=== PATIENT | female | born 1960 | race Caucasian/White ===

== ENCOUNTER 2022-07-23 12:41 | Outpatient (REF) | payer BC, SELFPAY ==
--- NOTE | 2022-07-23 | EMG_ITS ---
Please see scanned EMG / Nerve Conduction Report. MTDD
== END 2022-07-23 12:42 | disposition home or self-care (01) ==
LOC: HO.NEURO 12:41
PROVIDERS: PCP Internal Medicine; Visit Provider Psychiatry & Neurology Neurology
DX: G54.0 Brachial plexus disorders (principal); R20.2 Paresthesia of skin
CPT/HCPCS: 95885; 95913

== ENCOUNTER → 2022-08-11 15:24 | Outpatient (BNVA) | payer BC, SELFPAY | PROVIDERS: PCP Internal Medicine; Visit Provider Psychiatry & Neurology Neurology | DX: R20.2 Paresthesia of skin (principal); G54.0 Brachial plexus disorders; M54.2 Cervicalgia ==

== ENCOUNTER 2022-08-22 11:42 | Outpatient (REF) | payer BC, SELFPAY ==
--- NOTE | ~2022-08-22 | MR_ITS ---
EXAMINATION: MR CERVICAL SPINE WITHOUT CONTRAST CLINICAL INFORMATION: Skin paresthesias COMPARISON: None TECHNIQUE: MRI of the cervical spine was obtained using routine sequences without contrast. FINDINGS: The craniocervical junction is intact. Smooth reversal of the normal cervical lordosis. Trace anterolisthesis of C2 on C3 and C3 on C4. Vertebral body heights are normal without acute compression fracture. No suspicious osseous lesion. Multilevel disc desiccation and mild to moderate C4-C5 and C5-C6, to a lesser extent C6-C7 disc height loss. There are multilevel degenerative changes with level by level detail as follows: C2-C3: Uncovertebral spurring and mild facet arthrosis without spinal canal or neural foraminal stenosis. C3-C4: Small disc osteophyte complex with uncovertebral joint hypertrophy and mild facet arthrosis without spinal canal or neural foraminal stenosis. C4-C5: Small disc osteophyte complex with uncovertebral joint hypertrophy and mild facet arthrosis. No spinal canal or left neural foraminal stenosis. Mild right neural foraminal narrowing. C5-C6: Disc osteophyte complex with right greater than left uncovertebral joint hypertrophy and mild facet arthrosis. No spinal canal or left neural foraminal stenosis. Mild to moderate right neural foraminal narrowing. C6-C7: Disc osteophyte complex with uncovertebral joint hypertrophy and mild facet arthrosis. No spinal canal stenosis. Mild left without right neural foraminal stenosis. C7-T1: No spinal canal or neural foraminal stenosis. The cervical spinal cord is normal in signal and morphology. No epidural fluid collection, mass, or hematoma. No significant abnormalities of the paraspinal musculature. The flow voids of the major cervical vessels are maintained. The visualized intracranial structures are normal. No demonstrated abnormalities in the visualized neck. MR/MR cervical spine wo con IMPRESSION: Multilevel mild cervical spondylosis without significant spinal canal stenosis, cord compression, or cord signal abnormality. Mild to moderate neural foraminal stenosis on the right at C5-C6 and mild neural foraminal stenosis on the right at C4-C5 and on the left at C6-C7.
== END 2022-08-22 11:43 | disposition home or self-care (01) ==
LOC: HO.MRI 11:42
PROVIDERS: PCP Internal Medicine; Visit Provider Psychiatry & Neurology Neurology
DX: R20.2 Paresthesia of skin (principal); M54.2 Cervicalgia
CPT/HCPCS: 72141

== ENCOUNTER 2023-08-12 12:22 | Outpatient (AMB) | payer BC, SELFPAY ==
--- NOTE | 2023-08-12 12:31 | A.OFFVIS_ITS ---
Intake Vital Signs 08/12/23 12:32 Respiration 16 Pulse 79 Pulse Source Pulse Oximeter Pulse Oximetry (%) 98 Oxygen Delivery Method Room Air Intake Visit Reasons: 1yr follow up RLS-CONF Intake Note: Pt presents for 1 year follow up for RLS. Behavior Specialist Required: No Allergies Sulfa (Sulfonamide Antibiotics) Allergy (Severe, Verified 08/12/23 12:32) Hives HPI HPI Comments History of Present Illness Details 62y/o female comes for follow up of ting ling in bilateral hands, feet , forearms , arms. Her symptoms are better , she has mild sensory symptoms kunal hands . C xpine x ray shows spondylosis C4-5 C5-6 . EMG /NCS - normal mild sensory MRI C spine-Multilevel mild cervical spondylosis without significant spinal canal stenosis, cord compression, or cord signal abnormality. Mild to moderate neural foraminal stenosis on the right at C5-C6 and mild neural foraminal stenosis on the right at C4-C5 and on the left at C6-C7.. . PFSH Medical History Breast cancer Paresthesias Occasional tremors Hyperlipidemia GERD (gastroesophageal reflux disease) Asthma Thoracic outlet syndrome of right thoracic outlet Surgical History H/O lumpectomy S/P herniorrhaphy H/O dilation and curettage History of surgical removal of pilonidal cyst History of cholecystectomy History of bunionectomy Family History Father Pancreatic cancer Mother Hypertension Hyperlipemia Social History Alcohol intake: never Patient Tobacco Use Status: Never used Tobacco Physical Exam Vital Signs: Last Vital Signs Pulse 79 08/12/23 12:32 Resp 16 08/12/23 12:32 Pulse Ox 98 08/12/23 12:32 Oxygen Delivery Method Room Air 08/12/23 12:32 Const General: cooperative, healthy appearing, comfortable and no acute distress Nutritional Appearance: average body habitus Orientation/consciousness: patient oriented x3 Limitations: no limitations HEENT Head: Yes normal to inspection, Yes normocephalic and Yes atraumatic Ears: hearing grossly impaired Face and sinus: Yes normal facial exam Eyes Pupils: Equal, round and reactive pupils present Neck Other: tightness in bilateral trapezius Neck: Yes no meningeal signs Neuro General: patient oriented x3, gait normal, tone normal, moves all extremities, no meningeal signs and no focal motor deficits Cranial nerves: Yes Facial sensation intact/muscles of mastication intact, Yes Equal, round and reactive pupils present, Yes Normal accommodation reflex present, Yes Bilaterally intact EOM present, Yes Nystagmus not present, Yes Normal facial strength present, Yes Midline tongue present and Yes Symmetric palate elevation present Cognition (Neuro): normal cognition Gait exam (Neuro): Normal gait present Motor exam (neuro): 5/5 motor strength present throughout and Normal motor muscle tone present throughout Deep tendon reflexes (DTR's): Right triceps reflex intensity grade: 1+, Left triceps reflex intensity grade: 1+, Rt Biceps (C5, C6): 1+, Left biceps reflex intensity grade: 1+, Right brachioradialis reflex intensity grade: 1+, Left brachioradialis reflex intensity grade: 1+, Right patellar reflex intensity grade: 1+ and Left patellar reflex intensity grade: 1+ Coordination: [id number] test normal Assessment & Plan Assessment & Plan (1) Cervicalgia: Comment: cervical spondylosis Code(s): M54.2 - Cervicalgia Plan Continue neck stretching exercises will follow up as needed Discussed MRI results in detail Coding Level of Care Code Est Pt Level 3 (36523) Diagnoses Cervicalgia M54.2
[2023-08-12 12:32] VITALS: PULSE 79; RESP 16; O2SAT 98
== END 2023-08-12 14:35 | disposition home or self-care (01) ==
PROVIDERS: PCP Internal Medicine; Visit Provider Psychiatry & Neurology Neurology
DX: M54.2 Cervicalgia (principal)
CPT/HCPCS: 99213

== ENCOUNTER → 2023-08-12 12:22 | Outpatient (BNVA) | payer BC, SELFPAY | PROVIDERS: Visit Provider Psychiatry & Neurology Neurology | DX: R20.2 Paresthesia of skin (principal); G54.0 Brachial plexus disorders; M54.2 Cervicalgia ==